=== PATIENT | female | born 1950 | race Caucasian/White ===

== ENCOUNTER 2020-04-18 11:09 | Emergency (ER) | payer MEDICARE, BC ==
[~2020-04-18] VITALS: Ht 165.1 cm; Wt 82.3 kg
[2020-04-18] MEDS ORDERED: bacitracin 15gm ointment TP ONE (12:40)
[2020-04-18] MEDS ORDERED: TETanus/Pertussis (Acell)/Diphther VAC/PF (Tdap-Adult) 0.5ml syringe IMVAC ONE (12:40)
[2020-04-18] MEDS ORDERED: AMOX-422 PO (12:59)
[2020-04-18 13:48] VITALS: BP 126/81
== END 2020-04-18 13:47 | disposition home or self-care (01) ==
LOC: ER 11:09
DX: S61.412A Laceration without foreign body of left hand, initial encounter (principal); Z79.899 Other long term (current) drug therapy; X58.XXXA Exposure to other specified factors, initial encounter; Y93.89 Activity, other specified; Y92.89 Other specified places as the place of occurrence of the external cause; Y99.8 Other external cause status
CPT/HCPCS: 12002; 90471; 90715; 99283

== ENCOUNTER 2020-04-26 11:45 | Emergency (ER) | payer MEDICARE, BC ==
[~2020-04-26] VITALS: Ht 165.1 cm; Wt 84.1 kg
[~2020-04-26 11:45] MED LIST: AMOX-422 PO
[2020-04-26 13:18] VITALS: BP 123/72
== END 2020-04-26 13:10 | disposition home or self-care (01) ==
LOC: ER 11:46
DX: T14.8XXD Other injury of unspecified body region, subsequent encounter (principal); Z48.00 Encounter for change or removal of nonsurgical wound dressing; Z79.899 Other long term (current) drug therapy; X58.XXXD Exposure to other specified factors, subsequent encounter
CPT/HCPCS: 99281